=== PATIENT | female | born 2000 | race Caucasian/White ===

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

== ENCOUNTER 2019-09-10 20:20 | Emergency (ER) | payer OTHER, BC ==
[2019-09-10] MEDS ORDERED: ACETAMINOPHEN 325 MG TABLET PO ONE (20:59)
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
[2019-09-10 22:42] VITALS: BP 133/72
== END 2019-09-10 22:37 | disposition home or self-care (01) ==
LOC: ER 20:20
DX: M25.532 Pain in left wrist (principal); R51 Headache; M79.642 Pain in left hand; M25.562 Pain in left knee; V87.7XXA Person injured in collision between other specified motor vehicles (traffic), initial encounter; J45.909 Unspecified asthma, uncomplicated
CPT/HCPCS: 99283